=== PATIENT | male | born 1950 | race Caucasian/White ===

== ENCOUNTER 2021-02-24 06:54 | Day surgery (SDC) | payer MEDICARE, BC ==
[2021-02-24] MEDS ORDERED: Propofol 200 MG/20 ML SDV ONE (07:20)
[2021-02-24] MEDS ORDERED: Midazolam 1 MG/ML 2 ML SDV ONE (07:20)
--- NOTE | 2021-02-24 07:37 | PCM.PREANE ---
Preanesthetic Assessment - Procedure Proposed Procedure: Colonoscopy - Anesthesia/Transfusion/Family Hx Anesthesia History: Prior Anesthesia Reaction Other Type of Anesthesia Reaction Comment: only after knee scope in 1968 Family History of Anesthesia Reaction: No Transfusion History: No Prior Transfusion(s) - Review of Systems General: No Symptoms Pulmonary: No Symptoms Cardiovascular: No Symptoms (HTN, H/o AFIB about 3 years ago which went away on its own) Gastrointestinal: No Symptoms Neurological: No Symptoms Other: Reports: None - Physical Assessment NPO Status Date: 02/22/21 NPO Status Time: 17:00 (Solids, >8hr Liq) Vital Signs: Last Vital Signs Temp 97.3 F 02/24/21 07:11 Pulse 71 02/24/21 07:11 Resp 16 02/24/21 07:11 BP 171/82 H 02/24/21 07:11 Pulse Ox 96 02/24/21 07:11 Height: 6 ft 1 in Weight: 90.718 kg ASA Class: 2 Mental Status: Alert & Oriented x3 Airway Class: Mallampati = 1 Dentition: Reports: Normal Dentition ROM/Head Extension: Full Lungs: Clear to Auscultation, Normal Respiratory Effort Cardiovascular: Regular Rate, Regular Rhythm - Allergies Allergies/Adverse Reactions: Allergies Allergy/AdvReac Type Severity Reaction Status Date / Time hydrochlorothiazide Allergy Itching Verified 02/20/21 13:19 - Acknowledgements Anesthesia Type Planned: General Anesthesia Pt an Appropriate Candidate for the Planned Anesthesia: Yes Alternatives and Risks of Anesthesia Discussed w Pt/Guardian: Yes Pt/Guardian Understands and Agrees with Anesthesia Plan: Yes PreAnesthesia Questionnaire HEENT History: Reports: Cataract Cardiovascular History: Reports: Afib, Hypertension Other Cardiovascular History: had one episode of A-Fib 3 years ago- none since, takes Cartia to prevent recurrence Respiratory History: Reports: None Gastrointestinal History: Reports: Colon Polyp Genitourinary History: Reports: None Musculoskeletal History: Reports: Back Pain, Chronic, Fracture, Neck Pain, Chronic, Osteoarthritis Other Musculoskeletal History: hx of fx ribs Neurological History: Reports: None Psychiatric History: Reports: None Endocrine/Metabolic History: Reports: None Hematologic History: Reports: None Immunologic History: Reports: None Oncologic (Cancer) History: Reports: Malignant Melanoma Other Oncologic History: wide excision of melanoma on right arm Dermatologic History: Reports: None - Infectious Disease History Infectious Disease History: Reports: None - Past Surgical History Head Surgeries/Procedures: Reports: None HEENT Surgical History: Reports: Cataract Surgery, Tonsillectomy Cardiovascular Surgical History: Reports: None Respiratory Surgical History: Reports: None GI Surgical History: Reports: Colonoscopy, Hernia, Inguinal, Other (See Below) Other GI Surgeries/Procedures: Umbilical hernia repair Male Surgical History: Reports: Vasectomy Endocrine Surgical History: Reports: None Neurological Surgical History: Reports: None Musculoskeletal Surgical History: Reports: Arthroscopic Knee, Hip Replacement, Shoulder Surgery Other Musculoskeletal Surgeries/Procedures:: right shoulder arthroplasty, bilateral hip arthroplasty, left ACL repair (all have hardware), hx of multiple knee arthroscopies Oncologic Surgical History: Reports: None Dermatological Surgical History: Reports: None - SUBSTANCE USE Tobacco Use Status *Q: Never Tobacco User Tobacco Use Within Last Twelve Months: No Recreational Drug Use History: No - HOME MEDS Home Medications: Home Meds Aspirin [Adult Aspirin Regimen] 81 mg PO DAILY 02/20/21 [History] Diltiazem [Cardizem CD] 240 mg PO QAM 02/20/21 [History] Quinapril HCl 20 mg PO QAM 02/20/21 [History] Rosuvastatin Calcium 10 mg PO DAILY 02/20/21 [History] - CURRENT (IN HOUSE) MEDS Current Meds: Current Medications Lactated Ringer's (Ringers, Lactated) 1,000 mls @ 125 mls/hr IV ASDIRECTED DEREK Discontinued Medications Midazolam HCl (Midazolam 1 Mg/Ml 2 Ml Sdv) Confirm Administered Dose 2 mg .ROUTE .STK-MED ONE Stop: 02/24/21 07:21 Propofol (Propofol 200 Mg/20 Ml Sdv) Confirm Administered Dose 400 mg .ROUTE .STK-MED ONE Stop: 02/24/21 07:21
--- NOTE | 2021-02-24 08:26 | PCM.POSTAN ---
POST ANESTHESIA ASSESSMENT - MENTAL STATUS Mental Status: Alert, Oriented - VITAL SIGNS Vital Signs: Last Vital Signs Temp 97.3 F 02/24/21 07:11 Pulse 71 02/24/21 07:11 Resp 16 02/24/21 07:11 BP 171/82 H 02/24/21 07:11 Pulse Ox 96 02/24/21 07:11 - RESPIRATORY Respiratory Status: Respiratory Rate WNL, Airway Patent, O2 Saturation Stable, Supplemental Oxygen - CARDIOVASCULAR CV Status: Pulse Rate WNL, Blood Pressure Stable - GASTROINTESTINAL GI Status: No Symptoms - PAIN Pain Score: 0 - POST OP HYDRATION Hydration Status: Adequate & Stable
--- NOTE | 2021-02-24 08:30 | PCM.OPNOTE ---
- General Post-Op/Procedure Note Date of Surgery/Procedure: 02/24/21 Operative Procedure(s): Colonoscopy and polypectomy Findings: Polyp in rectal vault Dictation number [id number] Pre Op Diagnosis: screening Post-Op Diagnosis: Small polyp in rectal vault Anesthesia Technique: Moderate Sedation Primary Surgeon: Murtaza Pemberton Pathology: polyp Complications: None Condition: Good
--- NOTE | 2021-02-24 08:34 | PCM48HPAN ---
Post Anesthesia Note - EVALUATION WITHIN 48HRS OF ANESTHETIC Vital Signs in Normal Range: Yes Patient Participated in Evaluation: Yes Respiratory Function Stable: Yes Airway Patent: Yes Cardiovascular Function Stable: Yes Hydration Status Stable: Yes Pain Control Satisfactory: Yes Nausea and Vomiting Control Satisfactory: Yes Mental Status Recovered: Yes Vital Signs: Last Vital Signs Temp 97.3 F 02/24/21 07:11 Pulse 47 L 02/24/21 08:33 Resp 13 02/24/21 08:33 BP 105/58 L 02/24/21 08:33 Pulse Ox 95 02/24/21 08:33 - COMMENTS/OBSERVATIONS Free Text/Narrative:: Pt doing well post-op. VSS. No apparent anesthetic complications. Dr. Severo Miramontes
[2021-02-24] MEDS ORDERED: Lactated Ringers 1,000 ML IV SCH (12:30)
--- NOTE | 2021-02-25 07:35 | OR ---
SURGEON: NATALI EDWARDS MD DATE OF PROCEDURE: 02/24/2021 PREOPERATIVE DIAGNOSIS: Screening colonoscopy. POSTOPERATIVE DIAGNOSIS: Small polyp in the rectal vault. PROCEDURES PERFORMED: 1. Colonoscopy. 2. Cold biopsy polypectomy. PRIMARY SURGEON: Endoscopist: Natali Edwards MD ANESTHESIA: . EXTENT OF THE COLONOSCOPY: To the cecum. BOWEL PREP: Excellent. LIMITATIONS: None. REASON FOR PROCEDURE: The patient is a pleasant 70-year-old gentleman who says his last colonoscopy was 7 to 8 years ago, which was normal, but he does have history of polyps in the past. He denies any blood in stool. The patient did have did have a bout this summer with some abdominal pain, but this has since gone away. PROCEDURE IN DETAIL: Physical examination was performed. The major risks and benefits associated with the procedure were explained to the patient in detail. The patient verbalized understanding and agreement with the same. The patient was then connected to appropriate monitoring device and IV started. EKG, pulse, pulse oximetry, blood pressure, and capnography were monitored throughout the entire procedure. Continuous oxygen and sedation were provided by the anesthesiologist. The patient was placed in left lateral decubitus position. Sedation was began. After adequate sedation was achieved, a digital rectal exam was performed. No rectal masses or polyps were felt. Now, a well-lubricated Olympus colonoscope was inserted into the rectum and advanced under direct visualization to the level of the cecum. A photograph was taken of the cecal cap and terminal ileum and ileocecal valve. Scope was then slowly withdrawn in circular fashion looking at the color, texture, anatomy, and integrity of the mucosa from the cecum to the anal canal. The patient did have some minimal light liquid stool which was suctioned and irrigated out for an excellent look at the mucosa. The patient did have a small polyp, potentially hyperplastic right in the rectal vault. This was removed with a cold biopsy polypectomy and looked to be completely removed with good hemostasis. The scope was retroflexed in the rectum. He did have some noninflamed internal hemorrhoids. Scope was completely removed. Procedure was terminated. ENDOSCOPIC DIAGNOSIS: Small polyp in the rectal vault. RECOMMENDATION: Followup colonoscopy will depend on pathology, but most likely another one in 5 years, sooner if he develops signs and symptoms such as change in bowel habits or blood in his stool. GUILHERME / MIRIAM /[id number]
== END 2021-02-24 08:52 | disposition home or self-care (01) ==
LOC: MW.SDS 06:54
PROVIDERS: ATTEND Surgery
DX: Z12.11 Encounter for screening for malignant neoplasm of colon (principal); K62.1 Rectal polyp; K64.8 Other hemorrhoids; I10 Essential (primary) hypertension; I48.0 Paroxysmal atrial fibrillation; Z79.899 Other long term (current) drug therapy; Z98.890 Other specified postprocedural states; Z88.8 Allergy status to other drugs, medicaments and biological substances; Z79.82 Long term (current) use of aspirin
CPT/HCPCS: 45380; J2250; J2704; 00812; 99100